=== PATIENT | male | born 1985 | race Hispanic/Latino ===

== ENCOUNTER 2023-12-21 16:02 | Emergency (ER) | payer OTHER ==
[~2023-12-21] VITALS: Ht 167.6 cm; Wt 128.0 kg
[2023-12-21] VITALS (12 sets, daily range): BP systolic 81–120; BP diastolic 47–81
[2023-12-21 16:29] LABS: BASO% 0.1 % (0-3); EOS% 0.4 % (0-8); HEMOGLOBIN 13.7 g/dl (14.0-18.0); IMMATURE GRANULOCYTES 0.4 % (0.0-5.0); LYMPH% 11.5 % (15-41); MEAN CORPUSCULAR HGB CONC 32.6 g/dL CAL (32.0-36.0); MONO% 6.8 % (2-13); NEUT# 6.19 thou/uL (1.82-7.42); NEUT% 80.8 % (42-76); RED BLOOD COUNT 4.72 mill/uL (4.70-6.10); RED CELL DISTRI WIDTH 13.2 % (11.5-15.5)
[2023-12-21 16:51] LABS: ALBUMIN 4.1 g/dL (3.2-5.0); BILIRUBIN, TOTAL 1.7 mg/dL (0.2-1.3); CREATININE 0.6 mg/dL (0.7-1.3); POTASSIUM 3.7 mmol/l (3.5-5.1); TOTAL PROTEIN 6.8 g/dL (6.3-8.2)
== END 2023-12-21 18:47 | disposition left against medical advice (07) | DRG 605 ==
LOC: ED 16:02
PROVIDERS: Family Medicine
DX: S00.83XA Contusion of other part of head, initial encounter (principal); G40.909 Epilepsy, unspecified, not intractable, without status epilepticus; E80.6 Other disorders of bilirubin metabolism; R74.01 Elevation of levels of liver transaminase levels; W19.XXXA Unspecified fall, initial encounter; Z53.29 Procedure and treatment not carried out because of patient's decision for other reasons
CPT/HCPCS: J1953